=== PATIENT | female | born 1975 | race Two or more races ===

== ENCOUNTER → 2016-09-29 | Outpatient (CLI) | payer OTHER ==
--- NOTE | 2016-09-29 10:34 | REPMRS ---
Patient History The patient states she has not had a clinical breast exam in over a year. Patient had first child at age 36. Family history of breast cancer in 2 maternal aunts and breast cancer in maternal grandmother at age 50 or over. Digital Mammo Screening Bilat: September 29, 2016 - Exam #: [id number] Bilateral CC and MLO view(s) were taken. Technologist: Emma Dunn, Technologist FINDINGS: The breast tissue is heterogeneously dense. This may lower the sensitivity of mammography. There is no evidence of cancer on this mammogram. ASSESSMENT: BI-RADS/ACR category 2 mammogram. Benign finding(s). Recommendation Routine screening mammogram of both breasts in 1 year (for women over age 40). This mammogram was interpreted with the aid of an FDA-approved computer-aided dectection system. Electronically Signed By: Zhang Townsend MD 09/29/16 [id number]
== END ==
LOC: M RAD 10:02
PROVIDERS: ATTEND Physician Assistant
DX: Z12.31 Encounter for screening mammogram for malignant neoplasm of breast (principal); Z80.3 Family history of malignant neoplasm of breast

== ENCOUNTER 2017-01-28 18:06 | Emergency (ER) | payer OTHER ==
[~2017-01-28] VITALS: Ht 165.1 cm; Wt 109.1 kg
[2017-01-28] MEDS ORDERED: predniSONE 20 MG TAB PO ONE (22:30)
[2017-01-28 22:32] VITALS: BP 142/85
--- NOTE | 2017-01-29 08:03 | REP ---
Clinical: Cough . Comparison: None . Technique: PA and lateral. Findings: The mediastinum and cardiac silhouette are normal. The lung gray are clear and without acute consolidation, effusion, or pneumothorax. Small calcified right hilar lymph nodes are suggested. The skeletal structures are intact and normal. Impression: 1. No acute cardiopulmonary process. 2. Small calcified hilar lymph nodes suggested. Signed by Eric Grace MD 01/29/2017 07:55 A
== END 2017-01-28 22:45 | disposition home or self-care (01) ==
LOC: M ED 18:06
DX: R05 Cough (principal); I10 Essential (primary) hypertension; R91.8 Other nonspecific abnormal finding of lung field; J45.909 Unspecified asthma, uncomplicated; L30.9 Dermatitis, unspecified; Z88.0 Allergy status to penicillin; Z88.8 Allergy status to other drugs, medicaments and biological substances

== ENCOUNTER → 2018-07-08 | Outpatient (CLI) | payer OTHER ==
--- NOTE | 2018-07-08 13:04 | REPMRS ---
Patient History The patient states she has not had a clinical breast exam in over a year. Family history of breast cancer at age 50 or over in maternal grandmother, breast cancer in maternal aunt, breast cancer at age 50 or over in maternal aunt. 2D only insurance. denied. Digital Mammo Screening Bilat: July 08, 2018 - Exam #: [id number] Bilateral CC and MLO view(s) were taken. Technologist: Parris Bae, Technologist Prior study comparison: September 29, 2016, bilateral digital mammo screening bilat performed at [facility]. FINDINGS: The breast tissue is heterogeneously dense. This may lower the sensitivity of mammography. There has been no change in the appearance of the mammogram from the prior studies. There is a moderate amount of residual fibroglandular tissue which is fairly symmetric. There is no interval development of dominant mass, areas of architectural distortion, or clustered microcalcification typical of malignancy. Assessment: BI-RADS/ACR category 1 mammogram. Negative Mammogram. Recommendation Routine screening mammogram in 1 year (for women over age 40). This mammogram was interpreted with the aid of an FDA-approved computer-aided dectection system. THE LIFETIME RISK OF BREAST CANCER IS 26.1%, THEREFORE SUPPLEMENTAL SCREENING MRI OF THE BREASTS IS RECOMMENDED. Electronically Signed By: Zhang Townsend MD 07/08/18 [id number]
== END ==
LOC: M RAD 10:31
PROVIDERS: ATTEND Student in an Organized Health Care Education/Training Program
DX: Z12.31 Encounter for screening mammogram for malignant neoplasm of breast (principal)